=== PATIENT | male | born 1965 | race Caucasian/White ===

== ENCOUNTER 2021-09-17 11:29 | Emergency (ER) | payer OTHER ==
[~2021-09-17] VITALS: Ht 185.4 cm; Wt 117.9 kg
[2021-09-17] MEDS ORDERED: NAPROXEN500 MG PO (12:32)
[2021-09-17] MEDS ORDERED: NORCO 5-325 TA1 EACH PO (12:32)
== END 2021-09-17 12:39 | disposition home or self-care (01) ==
LOC: FER 11:29
DX: S52.511A Displaced fracture of right radial styloid process, initial encounter for closed fracture (principal); W17.89XA Other fall from one level to another, initial encounter; Y93.39 Activity, other involving climbing, rappelling and jumping off; Y92.009 Unspecified place in unspecified non-institutional (private) residence as the place of occurrence of the external cause
CPT/HCPCS: 73110